=== PATIENT | female | born 1965 ===

== ENCOUNTER 2017-02-11 15:07 | Inpatient (IN) | payer MEDICAID ==
--- NOTE | 2017-02-11 16:30 | ED PDOC ---
Arrival/HPI - General Chief Complaint: Trauma Time Seen by Provider: 02/11/17 16:28 Historian: Patient, Family - History of Present Illness Narrative History of Present Illness (Text): 02/11/17 21:06 51-year-old female with a history of diabetes, stroke, hypertension presents today with syncopal episode. Patient states she is not sure what happened she was getting up from the toilet fell forward hitting her head. Patient denies chest pain or shortness of breath. She is complaining of headache and facial pain laceration to the lip and left arm pain. Patient states the incident occurred last night around 9:51 PM. Patient states she's been feeling a little off today. Past Medical History - Provider Review Nursing Documentation Reviewed: Yes - Travel History Have you recently traveled outside [place] w/in the past 3 mons?: No - Infectious Disease Hx of Infectious Diseases: None - Tetanus Immunization Tetanus Immunization: Unknown - Reproductive Menopause: Yes - Cardiac Hx Hypertension: Yes - Pulmonary Hx Respiratory Disorders: No - Neurological HX Cerebrovascular Accident: Yes - HEENT Hx HEENT Disorder: No - Renal Hx Renal Disorder: No - Endocrine/Metabolic Hx Diabetes Mellitus Type 1: Yes - Hematological/Oncological Hx Blood Disorders: No - Integumentary Hx Dermatological Disorder: No - Musculoskeletal/Rheumatological Hx Musculoskeletal Disorders: No - Gastrointestinal Hx Gastrointestinal Disorders: No - Genitourinary/Gynecological Hx Genitourinary Disorders: No - Psychiatric Hx Psychophysiologic Disorder: No Hx Anxiety: Yes Hx Bipolar Disorder: No Hx Depression: Yes Hx Emotional Abuse: No Hx Hallucinations: No Hx Panic Disorder: No Hx Post Traumatic Stress Disorder: No Hx Psychosis: No Hx Physical Abuse: No Hx Schizophrenia: No Hx Sexual Abuse: No Hx Substance Use: No - Surgical History Hx Section: Yes - Anesthesia Hx Anesthesia: Yes Hx Anesthesia Reactions: No Hx Malignant Hyperthermia: No - Suicidal Assessment Feels Threatened In Home Enviroment: No Family/Social History - Physician Review Nursing Documentation Reviewed: Yes Family/Social History: Unknown Family HX Smoking Status: Never Smoked Hx Alcohol Use: No Hx Substance Use: No Hx Substance Use Treatment: No Allergies/Home Meds Allergies/Adverse Reactions: Allergies No Known Allergies Allergy (Verified 11/05/14 13:39) Home Medications: Home Meds Medication Instructions Recorded Confirmed Fenofibrate [Fenofibrate] 160 mg PO DAILY 11/11/14 11/11/14 Metformin Hydrochloride [Metformin] 500 mg PO BID 11/11/14 11/11/14 amLODIPine [Norvasc] 10 mg PO DAILY 11/11/14 11/11/14 Review of Systems - Review of Systems Constitutional: absent: Fatigue, Fevers Eyes: absent: Vision Changes, Photophobia, Eye Pain ENT: absent: Epistaxis, Sinus Congestion Respiratory: absent: SOB, Cough Cardiovascular: Syncope. absent: Chest Pain, Palpitations Gastrointestinal: absent: Abdominal Pain, Diarrhea, Nausea, Vomiting Genitourinary Female: absent: Dysuria, Frequency, Hematuria Musculoskeletal: Arthralgias. absent: Back Pain, Neck Pain Skin: absent: Rash, Pruritis Neurological: Headache. absent: Dizziness Psychiatric: absent: Anxiety, Depression Physical Exam Vital Signs Reviewed: Yes Vital Signs Temp Pulse Resp BP Pulse Ox 02/11/17 15:52 98.3 F 69 16 102/66 98 Temperature: Afebrile Blood Pressure: Normal Pulse: Regular Respiratory Rate: Normal Appearance: Positive for: Well-Appearing, Non-Toxic, Comfortable Pain Distress: None Mental Status: Positive for: Alert and Oriented X 3 - Systems Exam Head: Present: Tenderness, Swelling, Ecchymosis (right inferior orbit; + eccymosis; tenderness, and swelling noted; no step offs or crepitus. ), Laceration. No: Atraumatic Pupils: Present: PERRL Extroacular Muscles: Present: EOMI Conjunctiva: Present: Normal Ears: Present: Normal, NORMAL TM Mouth: Present: Moist Mucous Membranes. No: Drooling, Trismus, Normal Lips (+ edema and slight erythema noted to right lower lip; + 1cm linear laceration. ) Pharnyx: Present: Normal Nose (External): Present: Atraumatic Nose (Internal): Present: Normal Inspection. No: Septal Hematoma Neck: Present: Normal Range of Motion, Trachea Midline. No: MIDLINE TENDERNESS , Paraspinal Tenderness Respiratory/Chest: Present: Clear to Auscultation, Good Air Exchange. No: Respiratory Distress, Accessory Muscle Use Cardiovascular: Present: Regular Rate and Rhythm, Normal S1, S2. No: Murmurs Abdomen: No: Tenderness Back: Present: Normal Inspection. No: CVA Tenderness, Midline Tenderness, Paraspinal Tenderness, Pain with Leg Raise Upper Extremity: Present: Normal ROM, NORMAL PULSES, Tenderness (left arm: + ttp over the left shoulder, left humerus and elbow; full rom of extremity with pain; sensation and distal pulses intact. cap refill <2. ), Neurovascularly Intact, Capillary Refill < 2s. No: Swelling, Erythema, Deformity Neurological: Present: GCS=15, Speech Normal, Motor Func Grossly Intact, Normal Sensory Function Skin: Present: Warm, Dry, Normal Color. No: Rashes Psychiatric: Present: Alert, Oriented x 3 Medical Decision Making ED Course and Treatment: 02/11/17 16:29 pt with headache, right sided facial pain, left arm pain s/p fall. syncope. cbc; wnl cmp; wnl trop; wnl cxr; wnl ct head: FINDINGS: Brain: Minimal atrophy. No intracranial hemorrhage. No mass. Mild encephalomalacia within LEFT frontal, LEFT parietal regions. Chronic lacunar infarct within LEFT basal ganglia, thalamus. No edema. Ventricles: No hydrocephalus. Bones/joints: No calvarial fracture. Soft tissues: Unremarkable. Mastoid air cells: No mastoid effusion. Orbits: Unremarkable as visualized. IMPRESSION: 1. No intracranial hemorrhage. 2. See facial bone CT report for additional details. 3. Incidental/non-acute findings are described above CT facialbones; FINDINGS: Bones/joints: No acute fracture. Soft tissues: Unremarkable. Orbits: Unremarkable as visualized. Sinuses: Unremarkable. No air-fluid levels. IMPRESSION: 1. No fracture. 2. Incidental/non-acute findings are described above. left humerus xray; no fracture left shoulder xray; no fracture left elbow: no fracture ekg: Normal sinus rhythm at 61 bpm, LVH, no ST elevations pt with old linear laceration to left side of lower lip: + edema and slight erythema; will irrigate and cover with augmentin. tetanus updated tramadol asa po given. augmentin given po lip laceration irrigated well with copious amounts of NS using high pressure irrigation all results discussed with patient and family; will admit observational status for syncope. case discussed with dr. jovel and dr. Landaverde resident; accepts admission impression; syncope, head injury, lip laceration admit tele observation dr. khan for syncope. - Lab Interpretations Lab Results: 02/11/17 20:35 02/11/17 20:35 Lab Results 02/11/17 20:35: WBC 6.8 D, RBC 4.39, Hgb 13.0, Hct 38.5, MCV 87.7, MCH 29.6, MCHC 33.8, RDW 13.8, Plt Count 321, MPV 10.6, Gran % 43.4 L, Lymph % (Auto) 47.6 H, [place] % (Auto) 8.1 H, Eos % (Auto) 0.6 L, Baso % (Auto) 0.3, Gran # 2.96 , Lymph # 3.2, [place] # 0.6, Eos # 0.0, Baso # 0.02, Sodium 138, Potassium 3.8, Chloride 97 L, Carbon Dioxide 30, Anion Gap 15, BUN 19, Creatinine 0.7, Est GFR ( Amer) > 60, Est GFR (Non-Af Amer) > 60, Random Glucose 89, Calcium 9.7 , Total Bilirubin 0.6, AST 42 H, ALT 27, Alkaline Phosphatase 128, Lactate Dehydrogenase 450, Total Creatine Kinase 97, Troponin I < 0.01, Total Protein 8.6 H, Albumin 4.2, Globulin 4.3, Albumin/Globulin Ratio 1.0 L - RAD Interpretation Radiology Orders: 02/11/17 16:28 HEAD W/O CONTRAST [CT] Stat MAXILLOFACIAL W/O CONTRAST [CT] Stat ELBOW LEFT 3 VIEWS ROUTINE [RAD] Stat HUMERUS LEFT [RAD] Stat SHOULDER LEFT [RAD] Stat 02/11/17 20:19 CHEST PORTABLE [RAD] Stat - Medication Orders Current Medication Orders: Discontinued Medications Amoxicillin/Clavulanate Potassium (Augmentin 875 Mg-125 Mg Tab) 1 tab PO STAT STA PRN Reason: Protocol Stop: 02/11/17 21:12 Aspirin (Aspirin) 325 mg PO STAT STA Stop: 02/11/17 21:04 Tetanus/Reduced Diphtheria/Acell Pertussis (Boostrix Vaccine Inj) 0.5 ml IM .ONCE ONE Stop: 02/11/17 21:09 Tramadol HCl (Ultram) 50 mg PO STAT STA Stop: 02/11/17 21:04 Disposition/Present on Arrival - Present on Arrival Any Indicators Present on Arrival: No History of DVT/PE: No History of Uncontrolled Diabetes: No Urinary Catheter: No History of Decub. Ulcer: No History Surgical Site Infection Following: None - Disposition Have Diagnosis and Disposition been Completed?: Yes Diagnosis: Syncope, Head injury, Lip laceration, Arm pain Disposition: HOSPITALIZED Disposition Time: :20 Patient Plan: Observation, Telemetry Patient Problems: Current Active Problems Problem Status Diagnosed Arm pain Acute Head injury Acute Lip laceration Acute Syncope Acute Condition: FAIR Discharge Instructions (ExitCare): Syncope (ED) Referrals: Merced Claire DO [Primary Care Provider] - Follow up with primary
[2017-02-11 20:43] LABS: ADD MANUAL DIFF? NO
[2017-02-11 20:47] LABS: BASO # 0.02 K/mm3 (0.0-2.0); BASO % 0.3 % (0.0-3.0); EOS % 0.6 % (1.5-5.0); GRAN # 2.96 (1.4-6.5); GRAN % 43.4 % (50.0-68.0); HEMATOCRIT 38.5 % (36.0-48.0); LYMPH # 3.2 (1.2-3.4); LYMPH % 47.6 % (22.0-35.0); MEAN CELL VOLUME 87.7 fL (80.0-105.0); MEAN CORPUSCULAR HEMOGLOBIN 29.6 pg (25.0-35.0); MEAN CORPUSCULAR HGB CONC 33.8 g/dl (31.0-37.0); MEAN PLATELET VOLUME 10.6 fl (7.0-11.0); MONO # 0.6 (0.1-0.6); MONO % 8.1 % (1.0-6.0); PLATELET COUNT 321 10^3/uL (120.0-450.0); RED CELL DISTRIBUTION WIDTH 13.8 % (11.5-14.5); WHITE BLOOD COUNT 6.8 10^3/ul (4.5-11.0)
[2017-02-11 20:58] LABS: ALKALINE PHOSPHATASE 128 U/L (38-133); ALT/SGPT 27 U/L (7-56); AST/SGOT 42 U/L (15-39); BILIRUBIN,TOTAL 0.6 mg/dL (0.2-1.3); BLOOD UREA NITROGEN 19 mg/dL (7-21); CALCIUM 9.7 mg/dL (8.4-10.5); CARBON DIOXIDE 30 mmol/L (21-33); CHLORIDE 97 mmol/L (98-107); GFR AFRICAN-AMERICAN > 60; GLUCOSE,RANDOM 89 mg/dL (70-110); POTASSIUM 3.8 mmol/L (3.6-5.0); SODIUM 138 mmol/L (132-148); TOTAL PROTEIN 8.6 g/dL (5.8-8.3)
--- NOTE | 2017-02-11 20:59 | CT ---
EXAM: CT Maxillofacial Without Intravenous Contrast CLINICAL HISTORY: 51 years old, female; Injury or trauma; Fall; Initial encounter; Abrasion; Forehead TECHNIQUE: Axial computed tomography images of the face without intravenous contrast. This CT exam was performed using one or more of the following dose reduction techniques: automated exposure control, adjustment of the mA and/or kV according to patient size, and/or use of iterative reconstruction technique. Coronal and sagittal reformatted images were created and reviewed. COMPARISON: No relevant prior studies available. FINDINGS: Bones/joints: No acute fracture. Soft tissues: Unremarkable. Orbits: Unremarkable as visualized. Sinuses: Unremarkable. No air-fluid levels. IMPRESSION: 1. No fracture. 2. Incidental/non-acute findings are described above.
--- NOTE | 2017-02-11 20:59 | CT ---
EXAM: CT Head Without Intravenous Contrast CLINICAL HISTORY: 51 years old, female; Pain; Headache; Post-traumatic; Additional info: Headache/fall TECHNIQUE: Axial computed tomography images of the head/brain without intravenous contrast. This CT exam was performed using one or more of the following dose reduction techniques: automated exposure control, adjustment of the mA and/or kV according to patient size, and/or use of iterative reconstruction technique. COMPARISON: MR - BRAIN WITHOUT CONTRAST 09/27/2016 11:36:29 AM FINDINGS: Brain: Minimal atrophy. No intracranial hemorrhage. No mass. Mild encephalomalacia within LEFT frontal, LEFT parietal regions. Chronic lacunar infarct within LEFT basal ganglia, thalamus. No edema. Ventricles: No hydrocephalus. Bones/joints: No calvarial fracture. Soft tissues: Unremarkable. Mastoid air cells: No mastoid effusion. Orbits: Unremarkable as visualized. IMPRESSION: 1. No intracranial hemorrhage. 2. See facial bone CT report for additional details. 3. Incidental/non-acute findings are described above.
[2017-02-11] MEDS ORDERED: TDAP Vaccine 0.5 mL Syr IM ONE (21:08)
[2017-02-11 21:10] LABS: TROPONIN I < 0.01 ng/mL
[2017-02-11] MEDS ORDERED: Amoxicillin-Clav 875-125 mg Tab PO STA (21:11)
[2017-02-11 22:13] LABS: PH,URINE 6.5 (4.7-8.0); URINE BILIRUBIN NEGATIVE (NEGATIVE); URINE BLOOD TRACE-INTACT (NEGATIVE); URINE GLUCOSE (UA) >=1000 mg/dL (NEGATIVE); URINE KETONE NEGATIVE (NEGATIVE); URINE LEUKOCYTE ESTERASE NEGATIVE Leu/uL (NEGATIVE); URINE PROTEIN NEGATIVE mg/dL (<30 mg/dL); URINE UROBILINOGEN 0.2 E.U./dL (<1 E.U./dL)
[2017-02-11 22:26] LABS: URINE APPEARANCE CLEAR (CLEAR); URINE COLOR YELLOW (YELLOW)
--- NOTE | 2017-02-11 22:29 | CP.PCM.HP ---
<Ousmane Landaverde - Last Filed: 02/11/17 23:10> History of Present Illness - History of Present Illness History of Present Illness: This is a 51 yo female with past medical hx of stroke, TIA, speech impairment, HTN, DM presenting with near syncope. Pt was using toilet yesterday evening, got up from toilet and fell into bathtub, hurting her head. Denies LOC. Denies syncope in past. Denies any prodromal sx. She was able to get up and she went to sleep shortly after. She went to her adult daycare center the following day. She went to her doctor [place] because she had some left arm pain. Dr. Claire advised her to come to hospital. Pt is a very poor historian. Denies chest pain , sob, fevers, chills, N/V/D. Denies abdominal pain, denies weakness, any neuro deficits. PMH: stroke, tia, speech, impairment, HTN, DM (dx in 2012) PSH: None Allergies: NKDA Home meds: see MAR FH: Heart dx in family Social: Denies smoking. Rarely drinks. Denies drugs. Born in [place] Lives with mother in [place]. Does not work: on disability. Present on Admission - Present on Admission Any Indicators Present on Admission: No History of DVT/PE: No History of Uncontrolled Diabetes: No Urinary Catheter: No Decubitus Ulcer Present: No Review of Systems - Review of Systems All systems: reviewed and no additional remarkable complaints except Review of Systems: Negative except as stated in HPI. Past Patient History - Infectious Disease Hx of Infectious Diseases: None - Tetanus Immunizations Tetanus Immunization: Unknown - Past Medical History & Family History Past Medical History?: Yes Pertinent Family History: Heart dx in family - Past Social History Smoking Status: Never Smoked Chewing Tobacco Use: No Cigar Use: No Alcohol: Occasional Drugs: Denies Home Situation {Lives}: With Family Domestic Violence: Negative - CARDIAC Hx Hypertension: Yes - PULMONARY Hx Respiratory Disorders: No - NEUROLOGICAL HX Cerebrovascular Accident: Yes - HEENT Hx HEENT Problems: No - RENAL Hx Chronic Kidney Disease: No - ENDOCRINE/METABOLIC Hx Diabetes Mellitus Type 1: Yes - HEMATOLOGICAL/ONCOLOGICAL Hx Blood Disorders: No - INTEGUMENTARY Hx Dermatological Problems: No - MUSCULOSKELETAL/RHEUMATOLOGICAL Hx Musculoskeletal Disorders: No - GASTROINTESTINAL Hx Gastrointestinal Disorders: No - GENITOURINARY/GYNECOLOGICAL Hx Genitourinary Disorders: No - PSYCHIATRIC Hx Psychophysiologic Disorder: No Hx Anxiety: Yes Hx Bipolar Disorder: No Hx Depression: Yes Hx Emotional Abuse: No Hx Hallucinations: No Hx Panic Symptoms: No Hx Post Traumatic Stress Disorder: No Hx Psychosis: No Hx Physical Abuse: No Hx Schizophrenia: No Hx Sexual Abuse: No Hx Substance Use: No - SURGICAL HISTORY Hx Section: Yes - ANESTHESIA Hx Anesthesia: Yes Hx Anesthesia Reactions: No Hx Malignant Hyperthermia: No Meds Allergies/Adverse Reactions: Allergies Allergy/AdvReac Type Severity Reaction Status Date / Time No Known Allergies Allergy Verified 11/05/14 13:39 Physical Exam - Constitutional Appears: Non-toxic, No Acute Distress - Head Exam Head Exam: NORMOCEPHALIC. absent: ATRAUMATIC, NORMAL INSPECTION Additional comments: Bruise under right eye - Eye Exam Eye Exam: EOMI - ENT Exam ENT Exam: Mucous Membranes Moist - Neck Exam Neck exam: Positive for: Normal Inspection - Respiratory Exam Respiratory Exam: Clear to Auscultation Bilateral, NORMAL BREATHING PATTERN - Cardiovascular Exam Cardiovascular Exam: REGULAR RHYTHM, +S1, +S2 - GI/Abdominal Exam GI & Abdominal Exam: Normal Bowel Sounds, Soft. absent: Tenderness - Extremities Exam Extremities exam: Positive for: normal inspection - Neurological Exam Neurological exam: Alert, CN II-XII Intact, Oriented x3, Reflexes Normal Additional comments: Muscle strength 4/5 right upper and lower extremities - Psychiatric Exam Psychiatric exam: Flat Affect - Skin Skin Exam: Dry, Intact, Normal Color, Warm Results - Vital Signs Recent Vital Signs: Last Vital Signs Temp 98.3 F 02/11/17 15:52 Pulse 69 02/11/17 15:52 Resp 16 02/11/17 15:52 BP 102/66 02/11/17 15:52 Pulse Ox 98 02/11/17 15:52 - Labs Result Diagrams: 02/11/17 20:35 02/11/17 20:35 Labs: Laboratory Results - last 24 hr 02/11/17 20:35 WBC 6.8 D RBC 4.39 Hgb 13.0 Hct 38.5 MCV 87.7 MCH 29.6 MCHC 33.8 RDW 13.8 Plt Count 321 MPV 10.6 Gran % 43.4 L Lymph % (Auto) 47.6 H [place] % (Auto) 8.1 H Eos % (Auto) 0.6 L Baso % (Auto) 0.3 Gran # 2.96 Lymph # 3.2 [place] # 0.6 Eos # 0.0 Baso # 0.02 Sodium 138 Potassium 3.8 Chloride 97 L Carbon Dioxide 30 Anion Gap 15 BUN 19 Creatinine 0.7 Est GFR ( Amer) > 60 Est GFR (Non-Af Amer) > 60 Random Glucose 89 Calcium 9.7 Total Bilirubin 0.6 AST 42 H ALT 27 Alkaline Phosphatase 128 Lactate Dehydrogenase 450 Total Creatine Kinase 97 Troponin I < 0.01 Total Protein 8.6 H Albumin 4.2 Globulin 4.3 Albumin/Globulin Ratio 1.0 L Assessment & Plan - Assessment and Plan (Free Text) Assessment: This is a 51 yo female with past medical hx of stroke, TIA, speech impairment, DM, HTN presenting with near syncope. 1. Near syncope -cardio consult. Dr. Collado. jeniffer appreciated. -neuro consult. Dr. Cazares. jeniffer appreciated. -trend cardiac enzymes -carotid dopplers -may need echo -EKG shows NSR -orthostatic vital signs. -head ct negative for bleed -maxillofacial ct negative -urine drug screen pending -elbow/humerus xrays pending -1 dose of tramadol given for pain in ER 2. Hx of HTN -continue home amlodipine -continue home HCTZ -continue home metoprolol -continue home lisinopril 3. hx of stroke -continue home aggrenox 4. hx of DM -continue home metformin -ISS 5. hx of HLD -continue home lipitor -continue home fenofibrate 6. GI/DVT ppx -SCDs -protonix daily dw Dr. Urbano <Anay Urbano - Last Filed: 02/12/17 06:47> Results - Vital Signs Recent Vital Signs: Last Vital Signs Temp 97.7 F 02/12/17 05:40 Pulse 68 02/12/17 05:40 Resp 19 02/12/17 05:40 BP 141/79 02/12/17 05:40 Pulse Ox 97 02/12/17 05:40 - Labs Result Diagrams: 02/11/17 20:35 02/11/17 20:35 Labs: Laboratory Results - last 24 hr 02/11/17 02/11/17 21:45 22:40 Urine Color Yellow Urine Appearance Clear Urine pH 6.5 Ur Specific [place] 1.015 Urine Protein Negative Urine Glucose (UA) >=1000 Urine Ketones Negative Urine Blood Trace-intact H Urine Nitrate Negative Urine Bilirubin Negative Urine Urobilinogen 0.2 Ur Leukocyte Esterase Negative Urine RBC 0 - 2 Urine WBC 0 - 2 Ur Epithelial Cells 1 - 3 Urine Bacteria Mod Urine Opiates Screen Negative Urine Methadone Screen Negative Ur Barbiturates Screen Negative Ur Phencyclidine Scrn Negative Ur Amphetamines Screen Negative U Benzodiazepines Scrn Negative U Oth Cocaine Metabols Negative U Cannabinoids Screen Negative Attending/Attestation - Attestation I have personally seen and examined this patient.: Yes I have fully participated in the care of the patient.: Yes I have reviewed all pertinent clinical information: Yes Notes (Text): 02/12/17 06:44 Patient was seen when she was in the ER in room # 15. Agree with history, physical examination, assessment and plan. This 51 year old woman was admitted with syncope gives history of recurrent TIA' s ,HTN ,DM, sinusitis, .
[2017-02-11 22:52] LABS: URINE BACTERIA MOD (NEG); URINE RBC 0 - 2 /hpf (0-2); URINE WBC 0 - 2 /hpf (0-6)
[2017-02-12 05:33] VITALS: BMI 28.8
--- NOTE | 2017-02-12 08:33 | RAD ---
PROCEDURE: Radiographs of the left elbow. HISTORY: elbow pain/fall COMPARISON: No prior. FINDINGS: BONES: Normal. No fracture. JOINTS: Normal. No osteoarthritis. SOFT TISSUES: Normal. JOINT EFFUSION: None. OTHER FINDINGS: None IMPRESSION: Unremarkable radiographs of the left elbow.
--- NOTE | 2017-02-12 08:33 | RAD ---
PROCEDURE: Radiographs of the left humerus. HISTORY: fall COMPARISON: None. FINDINGS: BONES: Normal. No fracture or focal lesion. SOFT TISSUES: Normal. OTHER FINDINGS: None. IMPRESSION: Normal radiographs of left humerus.
--- NOTE | 2017-02-12 08:34 | RAD ---
PROCEDURE: Radiographs of the Left Shoulder HISTORY: fall COMPARISON: No prior. FINDINGS: BONES: Normal. No fracture. JOINTS: Glenohumeral articulation intact. Mild acromioclavicular degenerative arthritis. SOFT TISSUES: Normal. OTHER FINDINGS: None. IMPRESSION: No acute fracture. Mild acromioclavicular degenerative arthritis.
--- NOTE | 2017-02-12 08:45 | RAD ---
HISTORY: syncope COMPARISON: 11/15/2015 FINDINGS: LUNGS: No active pulmonary disease. PLEURA: No significant pleural effusion identified, no pneumothorax apparent. CARDIOVASCULAR: Normal. OSSEOUS STRUCTURES: No significant abnormalities. VISUALIZED UPPER ABDOMEN: Normal. OTHER FINDINGS: None. IMPRESSION: No active disease.
[2017-02-12] MEDS: Aspirin-Dipyridamole 200-25 mg ER Cap PO SCH (10:56)
--- NOTE | 2017-02-12 11:15 | US ---
PROCEDURE: Bilateral carotid artery duplex ultrasound HISTORY: Carotid stenosis syncope. PHYSICIAN(S): Claudio Taylor MD. TECHNIQUE: Duplex sonography and color-flow Doppler were used to evaluate the carotid bifurcations and limited segments of the vertebral arteries bilaterally. FINDINGS: There is mild smooth hypoechoic plaque noted at the carotid bifurcations bilaterally. The peak systolic velocity in the proximal right internal carotid artery is 64 cm/sec. This corresponds to a 20 to 39% proximal right ICA stenosis. Normal systolic velocities are noted in the proximal right external carotid artery. There is antegrade flow in the right vertebral artery. The peak systolic velocity in the proximal left internal carotid artery is 57 cm/sec. This corresponds to a 20 to 39% proximal left ICA stenosis. Normal systolic velocities are noted in the proximal left external carotid artery. There is antegrade flow in the left vertebral artery. IMPRESSION: 1. Bilateral 20-39% proximal ICA stenoses. 2. Antegrade flow in both vertebral arteries.
--- NOTE | 2017-02-12 13:25 | CON ---
DATE: 02/12/2017 REASON FOR CONSULTATION: Syncope, cardiac evaluation. BRIEF CLINICAL HISTORY: This is a 51-year-old female with a past medical history of CVA, stroke spee ch impairment, hypertension, diabetes, presents with near syncope. The patient was feeling very weak , going to the toilet yesterday and almost passed out. Denies any loss of consciousness. Denies any dizziness. Denies any chest pain. PAST MEDICAL HISTORY: Significant for TIA, CVA, speech impairment, hypertension, diabetes since 2012 . ALLERGIES: No known drug allergy. CURRENT MEDICATIONS: The patient is on amlodipine, metoprolol, metformin, lisinopril, fenofibrate, a torvastatin, aspirin. Previous cardiac workup as follows: The patient had a carotid artery ultrasound on 11/08/2014 that s hows 20-39% proximal ICA bilateral stenosis dated 11/08/2014. The patient had a brain MRI 08/17/2015 that showed nonhemorrhagic infarct dated 08/17/2015 in frontal lobe and middle lobe. History of echo cardiography 05/21/2015, normal LV size and function, mild concentric LVH. REVIEW OF SYSTEMS: As per HPI. PHYSICAL EXAMINATION: VITAL SIGNS: Temperature afebrile, heart rate 60, blood pressure 141/78. HEENT: PERRLA. Extraocular muscles intact. NECK: Supple. No carotid bruits or thyromegaly. CHEST: Clear to auscultation. HEART: S1, S2 regular. ABDOMEN: Soft. EXTREMITIES: Clubbing and cyanosis negative. LABORATORY DATA: Blood workup as of 6.8, hemoglobin 13, hematocrit 38.8, platelet count 321. Chemis try shows sodium 130, potassium 3.0, chloride 97, carbon dioxide 30, anion gap of 15, BUN 19, creatin ine 0.7. Troponin 0.02. IMPRESSION: Syncope, cerebrovascular accident, diabetes, hypertension, hyperlipidemia. RECOMMENDATION: Resume medication. Echo to assess LV function. Follow up CPK, troponin. For risk stratification, we can consider stress test. We will follow with you. Thank you, Dr. Rodas, for providing us the opportunity in taking care of the patient. We will fo llow with you. Oscar Bryan MD cc: [id number] TT: 02/12/2017 13:24:35 Confirmation # [id number] Dictation # [id number] tn
--- NOTE | 2017-02-12 14:49 | CON ---
DATE: 02/12/2017 HISTORY OF PRESENT ILLNESS: This is a 51-year-old female with past medical history of stroke, TIA, s peech impairment, hypertension and diabetes, came here to the hospital with possible near syncopal ep isode. The patient was on the toilet, got up and fell into the bathroom, hurting her head. CAT scan of the head was done, which was reported negative. She went to went to see Dr. Claire who sen t her to the hospital for further evaluation. PAST MEDICAL HISTORY: Stroke, TIA, speech impairment, hypertension, diabetes. ALLERGIES: No known drug allergy. SOCIAL HISTORY: Does not smoke. REVIEW OF SYSTEMS: A 10-point review of systems was negative except as noted above. PHYSICAL EXAMINATION: HEENT: Normocephalic, atraumatic. NECK: Supple. NEUROLOGIC: Awake, oriented to self. Cranial nerves II through XII were tested. Pupils reactive. Spontaneous movement of the extremities noted. Deep tendon reflexes 1+. Both plantars are downgoing . Sensory appears intact. Cerebellar gait deferred. IMPRESSION AND PLAN: Near syncope in a 51-year-old with past medical history of stroke, TIA, diabete s, hypertension, came with near syncope. CAT scan of the head was negative. Multiple medical proble ms, hypertension, diabetes. Continue present management. We will follow up. Lorenzo Cazares MD cc: [id number] TT: 02/12/2017 14:48:39 Confirmation # [id number] Dictation # [id number]
--- NOTE | 2017-02-12 16:23 | CP.PCM.PN ---
<Piotr Galan - Last Filed: 02/12/17 16:20> Subjective - Date & Time of Evaluation Date of Evaluation: 02/12/17 Time of Evaluation: 09:15 - Subjective Subjective: Dr. Galan PGY 1 Hospitalist note Patient seen and evaluated at bedside. She notes some tenderness around the right side of her eye but denies any extremity or body pain. She denies any past seizure activity. She acknowleges a history of CVA and TIA but does not have residual weakness. She gets physical therapy to improve strength. She currently denies any chest pain, SOB, nausea, vomiting, abdominal pain, or diarrhea. Objective - Vital Signs/Intake and Output Vital Signs (last 24 hours): Temp Pulse Resp BP Pulse Ox 97.7 F 67 20 107/75 97 02/12/17 05:40 02/12/17 12:00 02/12/17 12:00 02/12/17 12:00 02/12/17 05:40 - Medications Medications: Current Medications Amlodipine Besylate (Norvasc) 10 mg PO DAILY [facility] Last Admin: 02/12/17 10:57 Dose: 10 mg Atorvastatin Calcium (Lipitor) 40 mg PO DAILY [facility] Last Admin: 02/12/17 10:56 Dose: 40 mg Dipyridamole/Aspirin (Aggrenox 25-200 Mg) 1 ea PO BID [facility] Last Admin: 02/12/17 10:56 Dose: 1 ea Fenofibrate (Tricor) 145 mg PO DAILY [facility] Last Admin: 02/12/17 10:56 Dose: 145 mg Hydrochlorothiazide (Microzide) 12.5 mg PO DAILY [facility] Last Admin: 02/12/17 10:56 Dose: 12.5 mg Lisinopril (Zestril) 5 mg PO DAILY [facility] Last Admin: 02/12/17 10:57 Dose: 5 mg Metformin HCl (Glucophage) 500 mg PO BID [facility] Last Admin: 02/12/17 10:56 Dose: 500 mg Metoprolol Tartrate (Lopressor) 25 mg PO BID [facility] Last Admin: 02/12/17 10:57 Dose: 25 mg Pantoprazole Sodium (Protonix Inj) 40 mg IVP DAILY [facility] Last Admin: 02/12/17 10:56 Dose: 40 mg - Constitutional Appears: Non-toxic, No Acute Distress - Head Exam Head Exam: absent: ATRAUMATIC (echymosis under right eye) - Eye Exam Eye Exam: EOMI, Normal appearance, PERRL Pupil Exam: NORMAL ACCOMODATION, PERRL - ENT Exam ENT Exam: Mucous Membranes Moist - Neck Exam Neck Exam: Normal Inspection. absent: Tenderness - Respiratory Exam Respiratory Exam: Clear to Ausculation Bilateral, NORMAL BREATHING PATTERN. absent: Rales, Rhonchi, Wheezes - Cardiovascular Exam Cardiovascular Exam: REGULAR RHYTHM, +S1, +S2. absent: Gallop, Rubs, Murmur - GI/Abdominal Exam GI & Abdominal Exam: Soft, Normal Bowel Sounds. absent: Tenderness - Rectal Exam Rectal Exam: Deferred - Extremities Exam Extremities Exam: Normal Capillary Refill, Normal Inspection. absent: Pedal Edema, Tenderness - Back Exam Back Exam: NORMAL INSPECTION. absent: rash noted, tenderness - Neurological Exam Neurological Exam: Alert, Awake, CN II-XII Intact, Oriented x3 - Psychiatric Exam Psychiatric exam: Normal Affect, Normal Mood - Skin Skin Exam: Dry, Intact, Warm Assessment and Plan - Assessment and Plan (Free Text) Assessment: This is a 51 yo female with past medical hx of stroke, TIA, speech impairment, DM, HTN presenting with near syncope and facial trauma. Plan: 1. Near syncope * cardiology consulted, recs appreciated * Neurology consulted, recs appreciated * On care director * Initial EKG NSR with LA enlargement, no ST changes * cardiac enzymes negative x2 * Carotid dopplers show bilateral 20-39% proximal ICA stenosis [see full report] * F/U echo results * Orthostatics show Laying 115/76, sitting 108/64, Standing 92/67 * UDS negative * F/U MRI brain 2.S/P Fall * X-ray of left elbow and humerus unremarkable * Left shoulder x-ray showed no evidence of fracture, but arthritic degenerative changes [see full report] * Head CT showed no intracranial hemorrhages, incidental non-acute findings [ see full report] * Maxillofacial CT showed shows no evidence of acute fracture [see full report] 3. HTN * BP wnl * continue home amlodipine * continue home HCTZ * continue home metoprolol * continue home lisinopril 4. Hx of CVA/ TIA * continue home aggrenox 5. DM * continue home metformin 6. Hx of HLD * continue home lipitor * continue home fenofibrate 7. PPX * SCDs * protonix daily Discussed with attending physician. <Tamara Rodas - Last Filed: 02/12/17 17:39> Objective - Vital Signs/Intake and Output Vital Signs (last 24 hours): Temp Pulse Resp BP Pulse Ox 97.7 F 67 20 107/75 97 02/12/17 05:40 02/12/17 12:00 02/12/17 12:00 02/12/17 12:00 02/12/17 05:40 - Medications Medications: Current Medications Amlodipine Besylate (Norvasc) 10 mg PO DAILY [facility] Last Admin: 02/12/17 10:57 Dose: 10 mg Atorvastatin Calcium (Lipitor) 40 mg PO DAILY [facility] Last Admin: 02/12/17 10:56 Dose: 40 mg Dipyridamole/Aspirin (Aggrenox 25-200 Mg) 1 ea PO BID [facility] Last Admin: 02/12/17 10:56 Dose: 1 ea Fenofibrate (Tricor) 145 mg PO DAILY [facility] Last Admin: 02/12/17 10:56 Dose: 145 mg Hydrochlorothiazide (Microzide) 12.5 mg PO DAILY [facility] Last Admin: 02/12/17 10:56 Dose: 12.5 mg Lisinopril (Zestril) 5 mg PO DAILY [facility] Last Admin: 02/12/17 10:57 Dose: 5 mg Metformin HCl (Glucophage) 500 mg PO BID [facility] Last Admin: 02/12/17 10:56 Dose: 500 mg Metoprolol Tartrate (Lopressor) 25 mg PO BID [facility] Last Admin: 02/12/17 10:57 Dose: 25 mg Pantoprazole Sodium (Protonix Inj) 40 mg IVP DAILY [facility] Last Admin: 02/12/17 10:56 Dose: 40 mg Assessment and Plan - Assessment and Plan (Free Text) Assessment: Attending note; Patient seen and examined with resident. Patient is a 51-year-old female with a past medical history of hypertension, diabetes, old CVA is admitted with syncope and fall. CT and x ray negative. Troponin negative. cardiology evaluation appreciated. CT head is negative. Neurology evaluation requested. Carotid Doppler is negative for significant stenosis. orthostatic BP ordered. Monitor FS closely. PT eval requested. upon discharge the patient will follow-up with PMd Dr. Claire. Attending/Attestation - Attestation I have personally seen and examined this patient.: Yes I have fully participated in the care of the patient.: Yes I have reviewed all pertinent clinical information, including history, physical exam and plan: Yes
[2017-02-12] MEDS: Sodium Chloride 0.9% 1,000 ML IV SCH (18:11)
--- NOTE | 2017-02-12 18:42 | CARD ---
APPROVED REPORT EKG Measurement Heart [id number] <Conclusion> Normal sinus rhythm Possible Left atrial enlargement Left ventricular hypertrophy Abnormal ECG
[2017-02-12] MEDS: Insulin Reg-LOW-Coverage SC SCH (21:11)
[2017-02-13 06:49] LABS: ADD MANUAL DIFF? NO
[2017-02-13 07:09] LABS: ALB/GLOB RATIO 0.9 (1.1-1.8); ALKALINE PHOSPHATASE 93 U/L (38-133); ALT/SGPT 43 U/L (7-56); AST/SGOT 26 U/L (15-39); BILIRUBIN,TOTAL 0.5 mg/dL (0.2-1.3); BLOOD UREA NITROGEN 20 mg/dL (7-21); CARBON DIOXIDE 30 mmol/L (21-33); CHLORIDE 99 mmol/L (98-107); CHOLESTEROL 111 mg/dL (130-200); GFR AFRICAN-AMERICAN > 60; GLUCOSE,RANDOM 118 mg/dL (70-110); PHOSPHOROUS 4.2 mg/dL (2.5-4.5); POTASSIUM 4.1 mmol/L (3.6-5.0); SODIUM 137 mmol/L (132-148); TOTAL PROTEIN 7.2 g/dL (5.8-8.3)
[2017-02-13 07:16] LABS: BASO # 0.01 K/mm3 (0.0-2.0); BASO % 0.2 % (0.0-3.0); EOS # 0.1 (0.0-0.7); EOS % 1.3 % (1.5-5.0); GRAN # 2.03 (1.4-6.5); GRAN % 33.6 % (50.0-68.0); HEMATOCRIT 35.8 % (36.0-48.0); LYMPH # 3.3 (1.2-3.4); LYMPH % 55.3 % (22.0-35.0); MEAN CORPUSCULAR HEMOGLOBIN 29.5 pg (25.0-35.0); MEAN CORPUSCULAR HGB CONC 33.5 g/dl (31.0-37.0); MEAN PLATELET VOLUME 10.7 fl (7.0-11.0); MONO # 0.6 (0.1-0.6); MONO % 9.6 % (1.0-6.0); PLATELET COUNT 276 10^3/uL (120.0-450.0); RED CELL DISTRIBUTION WIDTH 13.7 % (11.5-14.5)
[2017-02-13] MEDS: Insulin Reg-LOW-Coverage SC SCH ×4 (08:00→21:33)
--- NOTE | 2017-02-13 10:02 | MRI ---
PROCEDURE: MRI BRAIN WITHOUT CONTRAST HISTORY: syncope COMPARISON: Comparison is made to the previous MRI dated 09/27/[address] dated 02/11/2017 TECHNIQUE: Multiplanar, multisequence MR images of the brain were obtained without intravenous contrast enhancement. FINDINGS: HEMORRHAGE: None DWI: No evidence of an acute or early subacute infarction. BRAIN PARENCHYMA: Re- demonstration of foci of encephalomalacia at the posterior left frontal lobe left parietal and left basal ganglia consistent with old infarcts. Mild chronic microvascular white matter ischemic disease. Mild atrophy is again noted. VENTRICLES: Unremarkable. No hydrocephalus. CRANIUM: Unremarkable. ORBITS: Grossly unremarkable. PARANASAL SINUSES/MASTOIDS: Clear VASCULAR SYSTEM: Skull base flow voids intact. OTHER FINDINGS: None. IMPRESSION: No evidence of acute infarct or acute intracranial pathology. Re- demonstration of foci of encephalomalacia at the left frontal left parietal and left basal ganglia consistent with old infarcts. Mild atrophy and mild chronic microvascular ischemic disease. No significant interval change compared to previous study dated 09/27/2016.
--- NOTE | 2017-02-13 10:15 | PN ---
DATE: 02/13/2017 REASON FOR CONSULTATION AND FOLLOWUP: Syncope, cardiac evaluation. BRIEF CLINICAL HISTORY: A 51-year-old female with past medical history of CVA, a stroke, speech impa irment, hypertension, diabetes presents with near syncope. She denies any chest pain, denies any triston rtness of breath, denies any palpitation. The patient is scheduled for a stress test, as the patient was on Aggrenox so is postponing, it is scheduled for tomorrow. Denies any chest pain, shortness of breath, any palpitation. PHYSICAL EXAMINATION: VITAL SIGNS: Temperature afebrile, heart rate 50, blood pressure . HEENT: PERRLA. Extraocular muscles intact. NECK: Supple. No carotid bruits. No thyromegaly. CHEST: Clear to auscultation. HEART: S1, S2 regular. ABDOMEN: Soft. EXTREMITIES: Clubbing and cyanosis negative. BLOOD WORKUP: As follows: WBC 6, hemoglobin 12.7, hematocrit 35.8, platelet count 276. Chemistry s hows sodium 130, potassium 4.0, chloride 99, carbon 30, anion gap of 12, BUN 20, creatinine 0.7, tota l protein 7.2, albumin 3.5, albumin globulin ratio 0.9, triglycerides 86, cholesterol 111, LDL 45, HD L 39. TSH 2.53. IMPRESSION: Near syncope, dizziness, transient ischemic attack, diabetes, cerebral vascular accident in the past, hypertension, hyperlipidemia. RECOMMENDATION: Followup echo stress test tomorrow. Hold Aggrenox. We will follow with you. So fa r, no evidence for acute coronary syndrome. No evidence of acute DE. We will follow with you. Thank you, Dr. Rodas for providing the opportunity in taking care of the patient. We will follow with you. We will keep n.p.o. for a stress test tomorrow. Oscar Bryan MD cc: [id number] TT: 02/13/2017 10:14:29 Confirmation # [id number] Dictation # [id number] an
--- NOTE | 2017-02-13 12:49 | PN ---
DATE: 02/13/2017 CHIEF COMPLAINT: Follow up for syncope. SUBJECTIVE: The patient is seen and examined at bedside. She denies any acute complaints. She has residual right-sided weakness from her old left parietal and left basal ganglia infarcts. She had an MRI of the brain which showed no acute intracranial abnormality, just redemonstration of foci of enc ephalomalacia in the left frontal, left parietal and the left basal ganglia consistent with old infar cts and microvascular ischemic changes. She is on Aggrenox and Lipitor for stroke prevention. Her b lood pressures were slightly mildly orthostatic. 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 REVIEW OF SYSTEMS: A 14-point review of systems is negative except for the HPI. ALLERGIES: No known drug allergies. MEDICATIONS: Reviewed via nurse's reconciliation sheet. FAMILY HISTORY: Noncontributory. PHYSICAL EXAMINATION: VITAL SIGNS: Temperature is 98, pulse rate of 60, blood pressure 124/76, respiratory rate of 19, oxy gen saturation 98% via room air. GENERAL: The patient is sitting up in bed in no acute distress. HEENT: Atraumatic, normocephalic. PERRLA . Extraocular muscles intact. NECK: Supple, no JVD, no adenopathy noted. LUNGS: Clear to auscultation. No adventitious sounds. HEART: S1, S2, normal rate and rhythm. No murmurs, rubs, or gallops. ABDOMEN: Soft, nontender, nondistended. Bowel sounds are present. EXTREMITIES: No clubbing, no cyanosis. Peripheral pulses 2+ felt bilaterally. NEUROLOGIC: The patient is alert, oriented to person, place, month and year. She has mild expressiv e aphasia. Otherwise, mild ____ from prior CVA. Cranial nerves II-XII are intact. MOTOR: Has right-sided weakness from prior CVA and the left side is intact. Toes are downgoing bila terally. SENSORY: Light touch, pinprick is decreased up to the calves bilaterally. Decreased vibration of th e toes. DEEP TENDON REFLEXES: 1+ throughout. COORDINATION: Gait is deferred for now. [id number] intact on the left, Mild pass pointing on th e right due to residual weakness from the CVA. LABORATORY DATA: Sodium 137, potassium 4.1, chloride 99, carbon dioxide 30, BUN of 20, creatinine 0. 7, random glucose 118. ASSESSMENT AND PLAN: This is a 51-year-old woman with past medical history of left middle cerebral a rtery cerebrovascular accident with residual right-sided weakness, speech impairment, history of diab etes, hypertension, who presented with near syncope and facial trauma. Her near syncope could be lik jessica secondary to a mild orthostatic change since she has mild orthostatic changes on her orthostatic vitals. MRI of the brain showed no acute intracranial abnormalities, just old cerebrovascular accide nt in the left middle cerebral artery territory. A carotid Doppler shows 20-39% proximal internal ca rotid artery stenosis. At this time, recommend: 1. Keep her systolic blood pressure between 120-130 mmHg and recommend hydration. 2. Physical therapy evaluation. 3. Adjust her blood pressure medications so she avoids any further orthostatic symptoms. 4. Continue with metformin 500 mg p.o. b.i.d. for her diabetes. 5. Continue with Aggrenox and Lipitor, Aggrenox 1 tab p.o. b.i.d. and Lipitor 40 mg p.o. daily for s troke prevention and she is clinically stable from my standpoint. No further neurological workup. W e will sign off. Macho Cazares MD cc: [phone] TT: 02/13/2017 12:48:33 Confirmation # [id number] Dictation # [id number] tn
--- NOTE | 2017-02-13 14:57 | CP.PCM.PN ---
<Piotr Galan - Last Filed: 02/13/17 14:53> Subjective - Date & Time of Evaluation Date of Evaluation: 02/13/17 Time of Evaluation: 07:30 - Subjective Subjective: Dr. Galan PGY 1 Hospitalist Note Patient seen and evaluated at bedside. She denies any pain in the arm, shoulder , or head. She reports resting comfortably. She is awaiting a stress test and MRI. She denies any weakness, numbness, nausea ,vomiting, chest pain, SOB, dysuria, or abdominal pain. She has no other complaints at this time. No adverse events per nursing over night. Objective - Vital Signs/Intake and Output Vital Signs (last 24 hours): Temp Pulse Resp BP Pulse Ox 97.9 F 98 H 20 124/84 97 02/13/17 12:00 02/13/17 14:00 02/13/17 12:00 02/13/17 12:00 02/13/17 09:00 Intake and Output: 02/13/17 02/13/17 06:59 18:59 Intake Total 2039 Balance 2039 - Medications Medications: Current Medications Amlodipine Besylate (Norvasc) 10 mg PO DAILY [facility] Last Admin: 02/12/17 10:57 Dose: 10 mg Atorvastatin Calcium (Lipitor) 40 mg PO DAILY [facility] Last Admin: 02/13/17 09:40 Dose: 40 mg Dipyridamole/Aspirin (Aggrenox 25-200 Mg) 1 ea PO BID [facility] Last Admin: 02/12/17 10:56 Dose: 1 ea Fenofibrate (Tricor) 145 mg PO DAILY [facility] Last Admin: 02/13/17 09:40 Dose: 145 mg Sodium Chloride (Sodium Chloride 0.9%) 1,000 mls @ 100 mls/hr IV .Q10H [facility] Last Admin: 02/12/17 18:11 Dose: 100 mls/hr Insulin Human Regular (Humulin R Low) 0 units SC ACHS [facility] Last Admin: 02/13/17 11:33 Dose: Not Given Lisinopril (Zestril) 5 mg PO DAILY [facility] Last Admin: 02/12/17 10:57 Dose: 5 mg Metformin HCl (Glucophage) 500 mg PO BID [facility] Last Admin: 02/12/17 10:56 Dose: 500 mg Metoprolol Tartrate (Lopressor) 25 mg PO BID [facility] Last Admin: 02/12/17 10:57 Dose: 25 mg Pantoprazole Sodium (Protonix Inj) 40 mg IVP DAILY [facility] Last Admin: 02/13/17 09:40 Dose: 40 mg - Labs Labs: 02/13/17 06:00 02/13/17 06:00 - Constitutional Appears: Non-toxic, No Acute Distress - Head Exam Head Exam: NORMOCEPHALIC. absent: ATRAUMATIC (echymosis under right eye) - Eye Exam Eye Exam: EOMI, Normal appearance, PERRL Pupil Exam: NORMAL ACCOMODATION, PERRL - ENT Exam ENT Exam: Mucous Membranes Moist - Neck Exam Neck Exam: Normal Inspection. absent: Tenderness, Thyromegaly - Respiratory Exam Respiratory Exam: Clear to Ausculation Bilateral, NORMAL BREATHING PATTERN. absent: Rales, Rhonchi, Wheezes - Cardiovascular Exam Cardiovascular Exam: REGULAR RHYTHM, +S1, +S2. absent: Gallop, Rubs, Murmur - GI/Abdominal Exam GI & Abdominal Exam: Soft, Normal Bowel Sounds. absent: Distended, Guarding, Tenderness - Rectal Exam Rectal Exam: Deferred - Extremities Exam Extremities Exam: Normal Inspection. absent: Pedal Edema, Tenderness - Back Exam Back Exam: NORMAL INSPECTION. absent: rash noted, tenderness - Neurological Exam Neurological Exam: Alert, Awake, CN II-XII Intact, Oriented x3 - Psychiatric Exam Psychiatric exam: Normal Affect, Normal Mood - Skin Skin Exam: Dry, Intact, Warm Assessment and Plan - Assessment and Plan (Free Text) Assessment: This is a 51 yo female with past medical hx of stroke, TIA, speech impairment, DM, HTN presenting with near syncope and facial trauma. MRI performed and negative for acute stroke. Awaiting stress test. Plan: 1. Near syncope * cardiology consulted, recs appreciated * Neurology consulted, recs appreciated * On surveillance system monitor * Initial EKG NSR with LA enlargement, no ST changes * cardiac enzymes negative x2 * Carotid dopplers show bilateral 20-39% proximal ICA stenosis [see full report] * F/U echo results * Initial orthostatics show Laying 115/76, sitting 108/64, Standing 92/67 * BP medication held and repeat orthostatics resulted in 139/84 laying, 151/81 sitting, and 132/85 standing * UDS negative * MRI brain performed showed no evidence of acute infarct; foci of encephalomalacia in left frontal,left parietal, and left basal ganglia; mild atrophy and chronic microvascular ischemic disease [see full report]. * Hold aggrenox and keep NPO after midnight for stress test tomorrow as per cardiology 2.S/P Fall * X-ray of left elbow and humerus unremarkable * Left shoulder x-ray showed no evidence of fracture, but arthritic degenerative changes [see full report] * Head CT showed no intracranial hemorrhages, incidental non-acute findings [ see full report] * Maxillofacial CT showed shows no evidence of acute fracture [see full report] 3. HTN * BP wnl * hold home amlodipine * hold home HCTZ * hold home metoprolol * hold home lisinopril 4. Hx of CVA/ TIA * hold home aggrenox for stress test tomorrow 5. DM * continue home metformin 6. Hx of HLD * continue home lipitor * continue home fenofibrate 7. PPX * SCDs * protonix daily Discussed with attending physician. <Tamara Rodas - Last Filed: 02/13/17 17:30> Objective - Vital Signs/Intake and Output Vital Signs (last 24 hours): Temp Pulse Resp BP Pulse Ox 97.9 F 98 H 20 124/84 97 02/13/17 12:00 02/13/17 14:00 02/13/17 12:00 02/13/17 12:00 02/13/17 09:00 Intake and Output: 02/13/17 02/13/17 06:59 18:59 Intake Total 600 Output Total 600 Balance 0 - Medications Medications: Current Medications Amlodipine Besylate (Norvasc) 10 mg PO DAILY [facility] Last Admin: 02/12/17 10:57 Dose: 10 mg Atorvastatin Calcium (Lipitor) 40 mg PO DAILY [facility] Last Admin: 02/13/17 09:40 Dose: 40 mg Dipyridamole/Aspirin (Aggrenox 25-200 Mg) 1 ea PO BID [facility] Last Admin: 02/12/17 10:56 Dose: 1 ea Fenofibrate (Tricor) 145 mg PO DAILY [facility] Last Admin: 02/13/17 09:40 Dose: 145 mg Sodium Chloride (Sodium Chloride 0.9%) 1,000 mls @ 100 mls/hr IV .Q10H [facility] Last Admin: 04/05/17 16:13 Dose: 100 mls/hr Insulin Human Regular (Humulin R Low) 0 units SC ACHS [facility] Last Admin: 02/13/17 16:29 Dose: Not Given Lisinopril (Zestril) 5 mg PO DAILY [facility] Last Admin: 02/12/17 10:57 Dose: 5 mg Metformin HCl (Glucophage) 500 mg PO BID [facility] Last Admin: 02/12/17 10:56 Dose: 500 mg Metoprolol Tartrate (Lopressor) 25 mg PO BID [facility] Last Admin: 02/12/17 10:57 Dose: 25 mg Pantoprazole Sodium (Protonix Inj) 40 mg IVP DAILY [facility] Last Admin: 02/13/17 09:40 Dose: 40 mg Assessment and Plan - Assessment and Plan (Free Text) Assessment: Attending note; Patient seen and examined with resident. Patient is a 51-year-old female with a past medical history of hypertension, diabetes, old CVA is admitted with syncope and fall. CT and x ray negative. Troponin negative. cardiology evaluation appreciated. stress test in am. CT head is negative. MRI is negative.Neurology evaluation appreciated. Carotid Doppler is negative for significant stenosis. Orthostatic hypotension resolving. continue IVF. BP meds on hold. PT eval requested. possible discharge home tomorrow if clinically stable. upon discharge the patient will follow-up with PMd Dr. Claire. Attending/Attestation - Attestation I have personally seen and examined this patient.: Yes I have fully participated in the care of the patient.: Yes I have reviewed all pertinent clinical information, including history, physical exam and plan: Yes
[2017-02-13] MEDS: Sodium Chloride 0.9% 1,000 ML IV SCH ×3 (16:13→23:57)
--- NOTE | 2017-02-13 20:15 | CARD ---
APPROVED REPORT EXAM: Two-dimensional and M-mode echocardiogram with Doppler and color Doppler. INDICATION Syncope 2D DIMENSIONS Left Atrium (2D)3.6 (1.6-4.0cm)IVSd0.9 (0.7-1.1cm) LVDd4.4 (3.9-5.9cm)PWd1.2 (0.7-1.1cm) LVDs2.7 (2.5-4.0cm)FS (%) 38.9 % LVEF (%)69.4 (>50%) M-Mode DIMENSIONS Aortic Root2.40 (2.2-3.7cm)Aortic Cusp Exc.1.10 (1.5-2.0cm) Aortic Valve AoV Peak Zhznawal572.0cm/Evelin Peak GR.12mmHg Mitral Valve MV E Jgevhofg62.5cm/sMV A Ivjwlfdi29.9cm/sE/A ratio0.9 TDI E/Lateral E'0.0E/Medial E'0.0 Tricuspid Valve TR Peak [id number]/sRAP [id number] Peak Gr.20mmHg [id number] LEFT VENTRICLE The left ventricle is normal size. There is normal left ventricular wall thickness. The left ventricular function is normal.EF-65% There is normal LV segmental wall motion. Transmitral Doppler flow pattern is Grade III-reversible restrictive diastolic dysfunction. No left ventricle thrombus noted on this study. There is no ventricular septal defect visualized. There is no left ventricular aneurysm. There is no mass noted in the left ventricle. RIGHT VENTRICLE The right ventricle is normal size. There is normal right ventricular wall thickness. The right ventricular systolic function is normal. ATRIA The left atrium size is normal. The right atrium size is normal. The interatrial septum is intact with no evidence for an atrial septal defect. AORTIC VALVE The aortic valve is thickened but opens well. Left Coronary Cusp Is heavily caicified with somewhat immobile. There is trace aortic regurgitation. There is no aortic valvular stenosis. There is no aortic valvular vegetation. MITRAL VALVE The mitral valve is thickened but opens well. Mitral annular calcification is mild. Mitral regurgitation is trace. There is no mitral valve stenosis. There is no evidence of mitral valve prolapse. TRICUSPID VALVE The tricuspid valve leaflets are thickened , but open well. There is trace to mild tricuspid regurgitation.RVSP-30 MMof hg There is no tricuspid valve stenosis. There is no tricuspid valve prolapse or vegetation. PULMONIC VALVE The pulmonary valve is normal in structure. There is trace pulmonic valvular regurgitation. There is no pulmonic valvular stenosis. GREAT VESSELS The aortic root is normal in size. The ascending aorta is normal in size. The pulmonary artery is normal. The IVC is normal in size and collapses >50% with inspiration. PERICARDIAL EFFUSION There is no pleural effusion. There is no pericardial effusion. <Conclusion> Normal Chamber Size. EF-65% The aortic valve is thickened but opens well. Left Coronary Cusp Is heavily caicified with somewhat immobile. There is trace aortic regurgitation. Mitral regurgitation is trace. There is trace to mild tricuspid regurgitation.RVSP-30 MMof hg
[2017-02-14 00:47] VITALS: RESP 18
[2017-02-14 05:26] VITALS: TEMP 97.6; O2SAT 99
[2017-02-14 07:48] LABS: ADD MANUAL DIFF? NO
[2017-02-14 07:53] LABS: BASO # 0.03 K/mm3 (0.0-2.0); BASO % 0.7 % (0.0-3.0); EOS # 0.1 (0.0-0.7); GRAN # 1.34 (1.4-6.5); GRAN % 29.1 % (50.0-68.0); HEMATOCRIT 37.1 % (36.0-48.0); LYMPH # 2.6 (1.2-3.4); LYMPH % 56.2 % (22.0-35.0); MEAN CELL VOLUME 88.1 fL (80.0-105.0); MEAN CORPUSCULAR HEMOGLOBIN 29.2 pg (25.0-35.0); MEAN CORPUSCULAR HGB CONC 33.2 g/dl (31.0-37.0); MEAN PLATELET VOLUME 10.8 fl (7.0-11.0); MONO # 0.6 (0.1-0.6); PLATELET COUNT 302 10^3/uL (120.0-450.0); RED CELL DISTRIBUTION WIDTH 13.7 % (11.5-14.5); WHITE BLOOD COUNT 4.6 10^3/ul (4.5-11.0)
[2017-02-14 08:06] LABS: ALKALINE PHOSPHATASE 96 U/L (38-133); ALT/SGPT 41 U/L (7-56); AST/SGOT 43 U/L (15-39); BILIRUBIN,TOTAL 0.5 mg/dL (0.2-1.3); BLOOD UREA NITROGEN 14 mg/dL (7-21); CALCIUM 9.1 mg/dL (8.4-10.5); CARBON DIOXIDE 30 mmol/L (21-33); CHLORIDE 100 mmol/L (95-110); GFR AFRICAN-AMERICAN > 60; GLUCOSE,RANDOM 120 mg/dL (70-110); POTASSIUM 4.3 mmol/L (3.6-5.0); SODIUM 139 mmol/L (132-148); TOTAL PROTEIN 7.9 g/dL (5.8-8.3)
--- NOTE | 2017-02-14 08:07 | EEG ---
DATE: 02/12/2017 CONDITION OF RECORDING: Awake and drowsy. DIAGNOSIS: Syncope. MEDICATIONS: Reviewed via nurse's reconciliation sheet. INTERPRETATION: This is a 16-channel international recording. The background activity is composed o f 6-7 cycles per second. There was a small amount of beta activity of 16-20 cycles per second seen i n this recording. There was an increased amount of theta activity of 5-7 cycles per second seen in t his tracing. Drowsiness was characterized by mixed beta and theta activities. Sleep was characteriz ed by vertex transient waves, sleep spindles and bilateral slowing. Photic stimulation showed no christie nge in the tracing. No paroxysmal activity noted in this recording. There was EKG artifact seen thr oughout the EEG as well as muscle artifact. There is evidence of mild diffuse slowing throughout. CONCLUSION: This is an abnormal EEG due to presence of bilateral slowing throughout the EEG consiste nt with bilateral cerebral dysfunction. No evidence of any epileptiform activity. Please clinically correlate. Macho Cazares MD cc: [id number] TT: 02/13/2017 13:26:56 Confirmation # [id number] Dictation # [id number]
[2017-02-14] MEDS: Insulin Reg-LOW-Coverage SC SCH ×3 (08:13→17:00)
[2017-02-14] MEDS ORDERED: Aminophylline 25 mg/ml Inj ONE (10:45)
[2017-02-14] MEDS ORDERED: Aspirin 325 mg EC Tablets PO SCH (15:00)
--- NOTE | 2017-02-14 15:06 | CP.PCM.DIS ---
<Piotr Galan - Last Filed: 02/15/17 09:01> Provider - Provider Date of Admission: 02/13/17 09:46 Attending physician: Tamara Rodas MD Primary care physician: Merced Claire DO Consults: Dr. Macho Collado Time Spent in preparation of Discharge (in minutes): 35 Hospital Course - Lab Results Lab Results: Most Recent Lab Values WBC 4.6 10^3/ul (4.5-11.0) D 02/14/17 06:30 RBC 4.21 10^6/uL (3.5-6.1) 02/14/17 06:30 Hgb 12.3 gm/dL (12.0-16.0) 02/14/17 06:30 Hct 37.1 % (36.0-48.0) 02/14/17 06:30 MCV 88.1 fL (80.0-105.0) 02/14/17 06:30 MCH 29.2 pg (25.0-35.0) 02/14/17 06:30 MCHC 33.2 g/dl (31.0-37.0) 02/14/17 06:30 RDW 13.7 % (11.5-14.5) 02/14/17 06:30 Plt Count 302 10^3/uL (120.0-450.0) 02/14/17 06:30 MPV 10.8 fl (7.0-11.0) 02/14/17 06:30 Gran % 29.1 % (50.0-68.0) L 02/14/17 06:30 Lymph % (Auto) 56.2 % (22.0-35.0) H 02/14/17 06:30 [place] % (Auto) 12.0 % (1.0-6.0) H 02/14/17 06:30 Eos % (Auto) 2.0 % (1.5-5.0) 02/14/17 06:30 Baso % (Auto) 0.7 % (0.0-3.0) 02/14/17 06:30 Gran # 1.34 (1.4-6.5) L 02/14/17 06:30 Lymph # 2.6 (1.2-3.4) 02/14/17 06:30 [place] # 0.6 (0.1-0.6) 02/14/17 06:30 Eos # 0.1 (0.0-0.7) 02/14/17 06:30 Baso # 0.03 K/mm3 (0.0-2.0) 02/14/17 06:30 Smear Path Review Cancelled 02/14/17 06:30 Sodium 139 mmol/L (132-148) 02/14/17 06:30 Potassium 4.3 mmol/L (3.6-5.0) 02/14/17 06:30 Chloride 100 mmol/L (95-110) 02/14/17 06:30 Carbon Dioxide 30 mmol/L (21-33) 02/14/17 06:30 Anion Gap 13 (10-20) 02/14/17 06:30 BUN 14 mg/dL (7-21) 02/14/17 06:30 Creatinine 0.6 mg/dL (0.5-1.4) 02/14/17 06:30 Est GFR ( Amer) > 60 02/14/17 06:30 Est GFR (Non-Af Amer) > 60 02/14/17 06:30 POC Glucose (mg/dL) 134 mg/dL (65-110) H 02/14/17 07:16 Random Glucose 120 mg/dL (70-110) H 02/14/17 06:30 Hemoglobin A1c 7.4 % (4.2-6.5) H 02/13/17 06:00 Calcium 9.1 mg/dL (8.4-10.5) 02/14/17 06:30 Phosphorus 4.2 mg/dL (2.5-4.5) 02/13/17 06:00 Magnesium 2.0 mg/dL (1.7-2.2) 02/13/17 06:00 Total Bilirubin 0.5 mg/dL (0.2-1.3) 02/14/17 06:30 AST 43 U/L (15-39) H 02/14/17 06:30 ALT 41 U/L (7-56) 02/14/17 06:30 Alkaline Phosphatase 96 U/L (38-133) 02/14/17 06:30 Lactate Dehydrogenase 450 U/L (333-699) 02/11/17 20:35 Total Creatine Kinase 97 U/L (35-230) 02/11/17 20:35 Troponin I < 0.01 ng/mL D 02/12/17 16:05 Total Protein 7.9 g/dL (5.8-8.3) 02/14/17 06:30 Albumin 3.9 g/dL (3.0-4.8) 02/14/17 06:30 Globulin 4.0 gm/dL 02/14/17 06:30 Albumin/Globulin Ratio 1.0 (1.1-1.8) L 02/14/17 06:30 Triglycerides 86 mg/dL (35-160) 02/13/17 06:00 Cholesterol 111 mg/dL (130-200) L 02/13/17 06:00 LDL Cholesterol Direct 45 mg/dL (0-129) 02/13/17 06:00 HDL Cholesterol 39 mg/dL (29-60) 02/13/17 06:00 TSH 3rd Generation 2.53 mIU/mL (0.46-4.68) 02/13/17 06:00 Urine Color Yellow (YELLOW) 02/11/17 21:45 Urine Appearance Clear (CLEAR) 02/11/17 21:45 Urine pH 6.5 (4.7-8.0) 02/11/17 21:45 Ur Specific [place] 1.015 (1.005-1.035) 02/11/17 21:45 Urine Protein Negative mg/dL (<30 mg/dL) 02/11/17 21:45 Urine Glucose (UA) >=1000 mg/dL (NEGATIVE) 02/11/17 21:45 Urine Ketones Negative mg/dL (NEGATIVE) 02/11/17 21:45 Urine Blood Trace-intact (NEGATIVE) H 02/11/17 21:45 Urine Nitrate Negative (NEGATIVE) 02/11/17 21:45 Urine Bilirubin Negative (NEGATIVE) 02/11/17 21:45 Urine Urobilinogen 0.2 E.U./dL (<1 E.U./dL) 02/11/17 21:45 Ur Leukocyte Esterase Negative Fay/uL (NEGATIVE) 02/11/17 21:45 Urine RBC 0 - 2 /hpf (0-2) 02/11/17 21:45 Urine WBC 0 - 2 /hpf (0-6) 02/11/17 21:45 Ur Epithelial Cells 1 - 3 /hpf (0-5) 02/11/17 21:45 Urine Bacteria Mod (NEG) 02/11/17 21:45 Urine Opiates Screen Negative (NEGATIVE) 02/11/17 22:40 Urine Methadone Screen Negative (NEGATIVE) 02/11/17 22:40 Ur Barbiturates Screen Negative (NEGATIVE) 02/11/17 22:40 Ur Phencyclidine Scrn Negative (NEGATIVE) 02/11/17 22:40 Ur Amphetamines Screen Negative (NEGATIVE) 02/11/17 22:40 U Benzodiazepines Scrn Negative (NEGATIVE) 02/11/17 22:40 U Oth Cocaine Metabols Negative (NEGATIVE) 02/11/17 22:40 U Cannabinoids Screen Negative (NEGATIVE) 02/11/17 22:40 - Hospital Course Hospital Course: HPI: This is a 51 yo female with past medical hx of stroke, TIA, speech impairment, HTN, DM presenting with near syncope. Pt was using toilet yesterday evening, got up from toilet and fell into bathtub, hurting her head. Denies LOC. Denies syncope in past. Denies any prodromal sx. She was able to get up and she went to sleep shortly after. She went to her adult daycare center the following day. She went to her doctor Dakotah because she had some left arm pain. Dr. Claire advised her to come to hospital. Pt is a very poor historian. Denies chest pain, sob, fevers, chills, N/V/D. Denies abdominal pain, denies weakness, any neuro deficits. Patient is a 51 y/o female who presented to the ED with complaint of becoming light headed and falling into a bathtub. Initial x-rays of the left elbow and humerus wer unremarkable. A left shoulder x-ray showed no evidence of fracture, but arthritic degenerative changes. A head CT showed no intracranial hemorrhages, incidental non-acute findings. A maxillofacial CT was performed and showed shows no evidence of acute fracture. Cardiology and Neurology were consulted. Her initial EKG showed NSR with LA enlargement and no ST changes. Cardiac enzymes were trended and remained wnl. Carotid dopplers were performed showing bilateral 20-39% proximal ICA stenosis. A MRI brain was performed showing no evidence of acute infarct; foci of encephalomalacia in left frontal, left parietal, and left basal ganglia; mild atrophy and chronic microvascular ischemic disease. An echocardiogram was performed showing LVEF of 65%, aortic valve thickening, left coronary cusp heavily calcified, trace aortic regurgitation mitral regurgitation, and mild tricuspid regurgitation. An EEG was performed which was abnormal due to previous infarct but no epileptic activity noted. A myocardial stress test was performed showing: The patient was determined medically stable for discharge. She was told to follow up with her primary care physician, neurologist, and infusion nurse within a week; continue taking Lipitor, Aggrenox, Tricore, Metformin, and Lopressor; begin taking Zestril; do not take Lasix or Norvasc until you have followed up with your primary care and infusion nurse; take medications as prescribed and if your condition worsens or new symptoms arise, please return to the emergency room. Patient verbalized understanding and was discharged home. - Date & Time of H&P Date of H&P: 02/11/17 Time of H&P: 22:25 Discharge Exam - Head Exam Head Exam: NORMOCEPHALIC. absent: ATRAUMATIC (echymosis under right eye) Discharge Plan - Discharge Medications Prescriptions: Aspirin/Dipyridamole [Aggrenox 25-200 mg] 1 ea PO BID #30 cap Metoprolol Tartrate [Lopressor] 25 mg PO BID #30 tab amLODIPine [Norvasc] 10 mg PO DAILY #15 tab Fenofibrate [Tricor] 145 mg PO DAILY #15 tab Lisinopril [Zestril] 5 mg PO DAILY #15 tab metFORMIN [glucOPHAGE] 500 mg PO BID #30 tab - Follow Up Plan Condition: FAIR Disposition: HOME/ ROUTINE Instructions: Syncope (DC), Syncope (GEN), Hypertension (DC), Hypertension (GEN ) Additional Instructions: 1) You are medically stable for discharge. 2) Please follow up with your primary care physician, neurologist, and infusion nurse within a week. 3) You are to continue taking Lipitor, Aggrenox, Tricore, Metformin, and Lopressor. You will begin taking Zestril. Please do not take Lasix or Norvasc until you have followed up with your primary care and infusion nurse. 4) Please take medications as prescribed. 5) If your condition worsens or new symptoms arise, please return to the emergency room. Referrals: Merced Claire DO [Primary Care Provider] - Oscar Bryan MD [Staff Provider] - <Tamara Rodas - Last Filed: 02/15/17 17:13> Provider - Provider Date of Admission: 02/13/17 09:46 Attending physician: Tamara Rodas MD Primary care physician: Merced Claire DO Time Spent in preparation of Discharge (in minutes): 35 Hospital Course - Lab Results Lab Results: Most Recent Lab Values WBC 4.6 10^3/ul (4.5-11.0) D 02/14/17 06:30 RBC 4.21 10^6/uL (3.5-6.1) 02/14/17 06:30 Hgb 12.3 gm/dL (12.0-16.0) 02/14/17 06:30 Hct 37.1 % (36.0-48.0) 02/14/17 06:30 MCV 88.1 fL (80.0-105.0) 02/14/17 06:30 MCH 29.2 pg (25.0-35.0) 02/14/17 06:30 MCHC 33.2 g/dl (31.0-37.0) 02/14/17 06:30 RDW 13.7 % (11.5-14.5) 02/14/17 06:30 Plt Count 302 10^3/uL (120.0-450.0) 02/14/17 06:30 MPV 10.8 fl (7.0-11.0) 02/14/17 06:30 Gran % 29.1 % (50.0-68.0) L 02/14/17 06:30 Lymph % (Auto) 56.2 % (22.0-35.0) H 02/14/17 06:30 [place] % (Auto) 12.0 % (1.0-6.0) H 02/14/17 06:30 Eos % (Auto) 2.0 % (1.5-5.0) 02/14/17 06:30 Baso % (Auto) 0.7 % (0.0-3.0) 02/14/17 06:30 Gran # 1.34 (1.4-6.5) L 02/14/17 06:30 Lymph # 2.6 (1.2-3.4) 02/14/17 06:30 [place] # 0.6 (0.1-0.6) 02/14/17 06:30 Eos # 0.1 (0.0-0.7) 02/14/17 06:30 Baso # 0.03 K/mm3 (0.0-2.0) 02/14/17 06:30 Smear Path Review Cancelled 02/14/17 06:30 Sodium 139 mmol/L (132-148) 02/14/17 06:30 Potassium 4.3 mmol/L (3.6-5.0) 02/14/17 06:30 Chloride 100 mmol/L (95-110) 02/14/17 06:30 Carbon Dioxide 30 mmol/L (21-33) 02/14/17 06:30 Anion Gap 13 (10-20) 02/14/17 06:30 BUN 14 mg/dL (7-21) 02/14/17 06:30 Creatinine 0.6 mg/dL (0.5-1.4) 02/14/17 06:30 Est GFR ( Amer) > 60 02/14/17 06:30 Est GFR (Non-Af Amer) > 60 02/14/17 06:30 POC Glucose (mg/dL) 128 mg/dL (65-110) H 02/14/17 16:01 Random Glucose 120 mg/dL (70-110) H 02/14/17 06:30 Hemoglobin A1c 7.4 % (4.2-6.5) H 02/13/17 06:00 Calcium 9.1 mg/dL (8.4-10.5) 02/14/17 06:30 Phosphorus 4.2 mg/dL (2.5-4.5) 02/13/17 06:00 Magnesium 2.0 mg/dL (1.7-2.2) 02/13/17 06:00 Total Bilirubin 0.5 mg/dL (0.2-1.3) 02/14/17 06:30 AST 43 U/L (15-39) H 02/14/17 06:30 ALT 41 U/L (7-56) 02/14/17 06:30 Alkaline Phosphatase 96 U/L (38-133) 02/14/17 06:30 Lactate Dehydrogenase 450 U/L (333-699) 02/11/17 20:35 Total Creatine Kinase 97 U/L (35-230) 02/11/17 20:35 Troponin I < 0.01 ng/mL D 02/12/17 16:05 Total Protein 7.9 g/dL (5.8-8.3) 02/14/17 06:30 Albumin 3.9 g/dL (3.0-4.8) 02/14/17 06:30 Globulin 4.0 gm/dL 02/14/17 06:30 Albumin/Globulin Ratio 1.0 (1.1-1.8) L 02/14/17 06:30 Triglycerides 86 mg/dL (35-160) 02/13/17 06:00 Cholesterol 111 mg/dL (130-200) L 02/13/17 06:00 LDL Cholesterol Direct 45 mg/dL (0-129) 02/13/17 06:00 HDL Cholesterol 39 mg/dL (29-60) 02/13/17 06:00 TSH 3rd Generation 2.53 mIU/mL (0.46-4.68) 02/13/17 06:00 Urine Color Yellow (YELLOW) 02/11/17 21:45 Urine Appearance Clear (CLEAR) 02/11/17 21:45 Urine pH 6.5 (4.7-8.0) 02/11/17 21:45 Ur Specific [place] 1.015 (1.005-1.035) 02/11/17 21:45 Urine Protein Negative mg/dL (<30 mg/dL) 02/11/17 21:45 Urine Glucose (UA) >=1000 mg/dL (NEGATIVE) 02/11/17 21:45 Urine Ketones Negative mg/dL (NEGATIVE) 02/11/17 21:45 Urine Blood Trace-intact (NEGATIVE) H 02/11/17 21:45 Urine Nitrate Negative (NEGATIVE) 02/11/17 21:45 Urine Bilirubin Negative (NEGATIVE) 02/11/17 21:45 Urine Urobilinogen 0.2 E.U./dL (<1 E.U./dL) 02/11/17 21:45 Ur Leukocyte Esterase Negative Fay/uL (NEGATIVE) 02/11/17 21:45 Urine RBC 0 - 2 /hpf (0-2) 02/11/17 21:45 Urine WBC 0 - 2 /hpf (0-6) 02/11/17 21:45 Ur Epithelial Cells 1 - 3 /hpf (0-5) 02/11/17 21:45 Urine Bacteria Mod (NEG) 02/11/17 21:45 Urine Opiates Screen Negative (NEGATIVE) 02/11/17 22:40 Urine Methadone Screen Negative (NEGATIVE) 02/11/17 22:40 Ur Barbiturates Screen Negative (NEGATIVE) 02/11/17 22:40 Ur Phencyclidine Scrn Negative (NEGATIVE) 02/11/17 22:40 Ur Amphetamines Screen Negative (NEGATIVE) 02/11/17 22:40 U Benzodiazepines Scrn Negative (NEGATIVE) 02/11/17 22:40 U Oth Cocaine Metabols Negative (NEGATIVE) 02/11/17 22:40 U Cannabinoids Screen Negative (NEGATIVE) 02/11/17 22:40 - Hospital Course Hospital Course: Attending note; Patient seen and examined with resident. Patient is a 51-year-old female with a past medical history of hypertension, diabetes, old CVA is admitted with syncope and fall. CT and x ray negative. Troponin negative. cardiology evaluation appreciated. stress test is negative. CT head is negative. MRI is negative.Neurology evaluation appreciated. Carotid Doppler is negative for significant stenosis. Orthostatic hypotension resolving. continue IVF. BP meds adjusted. PT eval appreciated. discharge home today. upon discharge the patient will follow-up with PMd Dr. Claire. diagnosis: Syncope orthostatic BP CVA DM
--- NOTE | 2017-02-14 15:39 | PN ---
DATE: 02/14/2017 REASON FOR CONSULTATION AND FOLLOWUP: Syncope, cardiac intervention. BRIEF CLINICAL HISTORY: A 51-year-old female with a past medical history of CVA, stroke with speech impediment, hypertension, presents with near syncope. Denies any chest pain, shortness of breath, gary ving multiple risk factors, is here for a stress test today. PHYSICAL EXAMINATION: VITAL SIGNS: Temperature afebrile, heart rate 60, blood pressure 147/93. HEENT: PERRLA. Extraocular muscles intact. NECK: Supple. No carotid bruits or thyromegaly. CHEST: Clear to auscultation. HEART: S1, S2 regular. ABDOMEN: Soft. EXTREMITIES: Clubbing and cyanosis negative. LABORATORY DATA: Blood workup as follows: WBC ____ , hemoglobin ____, hematocrit 37.1, platelet cou nt 302. Chemistry shows sodium 130, potassium 4.0, carbon dioxide 30, anion gap of 13, BUN 14, creat inine 0.6. IMPRESSION: The patient had hypertension, CVA in the past, transient ischemic attack, diabetes, hype rtension, hyperlipidemia, dizziness, multiple risk factors, scheduled for a stress test today. The p atient had echocardiography done yesterday that showed ejection fraction 65%, left coronary cusp heav sarabjit calcified was somewhat immobile. There is trace aortic regurgitation, trace mitral regurgitation , mild tricuspid regurgitation, RV systolic pressure of 30. Continue aggressive control of cholester ol. Continue aggressive control of blood pressure. Will increase lisinopril to 5, will give 5 stat and change it from ____ . Oscar Bryan MD cc: [id number] TT: 02/14/2017 15:20:52 Confirmation # [id number] Dictation # [id number] 02/14/2017 14:39:07
[2017-02-14] MEDS: Aspirin-Dipyridamole 200-25 mg ER Cap PO SCH (18:21)
[2017-02-14 18:30] VITALS: BP 121/99; PULSE 70
--- NOTE | 2017-02-14 23:35 | CARD ---
APPROVED REPORT Protocol: LEXISCAN Test Type: Lexiscan Sestamibi Stress Test Attending Physician: Dr. Otilia Baires Referring Physician: Dr. Simon Claire Test Indications: Chest Pain Height:5 ft 6 in Weight:175lbs Medications: Amlodipine Lipitor Aggrenox Tricor Zestril Lopressor Medical History: 51 y/o female hx of TIA CVA Target HR: 169 bpm Resting ECG: RSR. Resting Heart Rate: 75 bpm Resting Blood Pressure: 140/80mmHg Submaximum (85%): 144 bpm PROCEDURE Pharmacologic stress testing was performed using 0.4mg per 5ml of regadenoson given intravenously over 7-10 seconds. POST EXERCISE Reason for Termination: Protocol completed Target HR: No Max HR: 69 bpm 63% of Maximum Predicted HR: 169 bpm Exercise duration: 00:40 min:sec, 0 Stage Exercise capacity: 1.0METs Max Blood Pressure: 148/82mmHg Blood Pressure response to exercise: resting hypertension - appropriate response Heart Rate response to exercise: appropriate Chest Pain: No, none Angina index: 0 Arrhythmia: No, none ST Change: No, none Deviation: 0 mm INTERPRETATION Stress EKG Conclusion: IV LEXISCAN NUCLEAR STRESS TEST NEGATIVE FOR CHEST PAIN AND NEGATIVE FOR ST-T CHANGES. NUCLEAR SCAN REPORT PENDING. Signed by Otilia Baires Electronically Approved: 02/14/2017 13:54:35 EXAM: Myocardial Perfusion REST/STRESS Stress Test Type: Pharmacologic Imaging Protocol Rest Spect myocardial perfusion imaging was performed in supine position 40 minutes following the injection of 10.3 mCi of Tc-99 Myoview. At peak stress, the patient was injected intravenously with 30.7mCi of Tc-99 tetrofosmin after an infusion time of 0 minutes and 10 seconds. Gated Stress Spect was performed 65 minutes after intravenous Tc-99 Myoview injection. The images were gated to evaluate regional wall motion and calculate ventricular ejection fraction.Images were reconstructed using backfilter projection method in short horizontal and verticle long axis. Spect slices were generated. LV Perfusion The quality of the study is good. The left ventricle is within normal limits in size. The right ventricle is unremarkable. The lung uptake is normal. The distribution of tracer reveals moderately and diffusely decreased perfusion involving mid to distal anterior wall on the stress study. The remainder of the LV myocardium is unremarkable. The rest myocardial perfusion study shows no significant change. Wall Motion Wall motion study shows good contractility of the left ventricle. LVEF = 64%. Conclusion 1. Essentially normal SPECT myocardial perfusion study. 2. Fixed, anterior defect is most likely due to breast attenuation. 3. Normal gated wall motion of the left ventricle.
== END 2017-02-14 19:16 | disposition home or self-care (01) | DRG 141 ==
LOC: ED 15:07 → ERH 21:24 → 2RSO 02-12 04:07 → OBSVTOIN 02-13 09:46
PROVIDERS: ADMIT Internal Medicine; ATTEND Internal Medicine
PROC: 3E0234Z Introduction of Serum, Toxoid and Vaccine into Muscle, Percutaneous Approach (ICD-10-PCS; principal; 2017-02-11)
DX: I95.1 Orthostatic hypotension (principal); I65.23 Occlusion and stenosis of bilateral carotid arteries; E11.8 Type 2 diabetes mellitus with unspecified complications; G93.89 Other specified disorders of brain; S09.90XA Unspecified injury of head, initial encounter; I69.351 Hemiplegia and hemiparesis following cerebral infarction affecting right dominant side; I08.3 Combined rheumatic disorders of mitral, aortic and tricuspid valves; W18.12XA Fall from or off toilet with subsequent striking against object, initial encounter; S01.511A Laceration without foreign body of lip, initial encounter; I10 Essential (primary) hypertension; S00.11XA Contusion of right eyelid and periocular area, initial encounter; E78.5 Hyperlipidemia, unspecified; Z79.84 Long term (current) use of oral hypoglycemic drugs; Z79.899 Other long term (current) drug therapy; Z82.49 Family history of ischemic heart disease and other diseases of the circulatory system; Y92.002 Bathroom of unspecified non-institutional (private) residence as the place of occurrence of the external cause; M79.602 Pain in left arm; R40.2412 Glasgow coma scale score 13-15, at arrival to emergency department; I69.398 Other sequelae of cerebral infarction; Z23 Encounter for immunization